=== PATIENT | male | born 1960 | race Caucasian/White ===

== ENCOUNTER 2017-04-11 03:37 | Emergency (ER) | payer SELFPAY ==
[2017-04-11] MEDS ORDERED: GABAPENTIN 300 MG CAPSULE PO SCH ×2 (04:30→14:00)
--- NOTE | 2017-04-11 05:10 | ER Document Report ---
ED General - General TRAVEL OUTSIDE OF THE [place] IN LAST 30 DAYS: No <RADHA PIERRE - Last Filed: 04/11/17 05:59> <AUSTIN DARBY - Last Filed: 04/11/17 10:54> <FEDERICO JEREZ - Last Filed: 04/11/17 11:55> - General Chief Complaint: Psych Problem Stated Complaint: SUICIDAL IDEATION/ETOH Time Seen by Provider: 04/11/17 04:15 Notes: Patient is 57-year-old male who presents with complaint of medical abuse and suicidal ideations. Patient says he has never been seen for this in the past. He says he did recent go through divorce. He says he drinks every day. He does have some withdrawal symptoms of does not drink. He says recently he has been thinking about suicide. He did call me once we brought to the hospital to get help with his alcohol abuse and suicidal thoughts. He does not currently have a plan. He's never tried to hurt himself in the past. (RADHA PIERRE) Past Medical History - Social History Smoking Status: Never Smoker Chew tobacco use (# tins/day): Yes Frequency of alcohol use: Heavy Drug Abuse: None Family History: Reviewed & Not Pertinent Patient has suicidal ideation: Yes Patient has homicidal ideation: No Renal/ Medical History: Denies: Hx Peritoneal Dialysis Surgical Hx: Negative <RADHA PIERRE - Last Filed: 04/11/17 05:59> Review of Systems <RADHA PIERRE - Last Filed: 04/11/17 05:59> <AUSTIN DARBY - Last Filed: 04/11/17 10:54> <FEDERICO JEREZ - Last Filed: 04/11/17 11:55> - Review of Systems Notes: My Normal Review Basic REVIEW OF SYSTEMS: CONSTITUTIONAL : Denies fever, chills, or sweats. Denies recent illness. EENT: Denies eye, ear, throat, or mouth pain or symptoms. Denies nasal or sinus congestion. CARDIOVASCULAR: Denies chest pain. RESPIRATORY: Denies cough, cold, or chest congestion. Denies shortness of breath, difficulty breathing, or wheezing. GASTROINTESTINAL: Denies abdominal pain. Denies nausea, vomiting, or diarrhea. Denies constipation. Last BM: MUSCULOSKELETAL: Denies neck or back pain or joint pain or swelling. SKIN: Denies rash or skin lesions. HEMATOLOGIC : Denies easy bruising or bleeding. LYMPHATIC: Denies swollen, enlarged glands. NEUROLOGICAL: Denies altered mental status or loss of consciousness. Denies headache. Denies weakness or paralysis or loss of use of either side. Denies problems with gait or speech. Denies sensory or motor loss. PSYCHIATRIC: Depression. Suicidal thoughts. ALL OTHER SYSTEMS REVIEWED AND NEGATIVE. (RADHA PIERRE) Physical Exam <RADHA PIERRE - Last Filed: 04/11/17 05:59> <AUSTIN DARBY - Last Filed: 04/11/17 10:54> <FEDERICO JEREZ - Last Filed: 04/11/17 11:55> - Vital signs Vitals: Temp Pulse Resp BP Pulse Ox 97.9 F 87 16 163/90 H 97 04/11/17 04:00 04/11/17 04:00 04/11/17 04:00 04/11/17 04:00 04/11/17 04:00 - Notes Notes: General Appearance: Well nourished, alert, cooperative, no acute distress, no obvious discomfort. Well-appearing. Vitals: reviewed, See vital signs table. Head: no swelling or tenderness to the head Eyes: PERRL, EOMI, Conjuctiva clear Mouth: No decreasd moisture Lungs: No wheezing, No rales, No rhonci, No accessory muscle use, good air exchange bilaterally. Heart: Normal rate, Regular rythm, No murmur, no rub Abdomen: Normal BS, soft, No rigidity, No abdominal tenderness, No guarding, no rebound, no abdominal masses, no organomegaly Extremities: strength 5/5 in all extremities, good pulses in all extremities, no swelling or tenderness in the extremities, no edema. Skin: warm, dry, appropriate color, no rash Neuro: speech clear, oriented x 3, normal affect, responds appropriately to questions. (RADHA PIERRE) Course - Laboratory Result Diagrams: 04/11/17 05:23 04/11/17 05:23 <RADHA PIERRE - Last Filed: 04/11/17 05:59> - Laboratory Result Diagrams: 04/11/17 05:23 04/11/17 05:23 <AUSTIN DARBY - Last Filed: 04/11/17 10:54> - Laboratory Result Diagrams: 04/11/17 05:23 04/11/17 05:23 <FEDERICO JEREZ - Last Filed: 04/11/17 11:55> - Vital Signs Vital signs: Temp Pulse Resp BP Pulse Ox 97.9 F 87 16 163/90 H 97 04/11/17 04:00 04/11/17 04:00 04/11/17 04:00 04/11/17 04:00 04/11/17 04:00 - Laboratory Laboratory results interpreted by me: 04/11/17 04/11/17 04/11/17 05:23 05:23 05:23 WBC 11.2 H Seg Neutrophils % 81.6 H Lymphocytes % 11.2 L Absolute Neutrophils 9.2 H Urine Blood SMALL H Salicylates < 1.0 L Acetaminophen < 10 L - EKG Interpretation by Me Additional EKG results interpreted by me: 04/11/17 05:19 EKG is reviewed and interpreted by me. EKG shows normal sinus rhythm with rate of [address] segment elevation or depression. No ischemic T wave inversions. IN interval, QRS duration QTC intervals are within normal range. No old EKG available for comparison. (RADHA PIERRE) - Transfer of Care Notes: 04/11/17 06:00 Patient slept reevaluation is unremarkable other than a cyst in the bed elevation of his alcohol level. Patient is medically stable for psychiatric evaluation and placement. I have ordered gabapentin 3 times a day to help prevent going into any alcohol withdrawal. If he is discharged after seeing psychiatry may need a prescription for tapering dose gabapentin to help prevent withdrawal symptoms. Patient currently is voluntary. His complaint of some suicidal ideations but denies a plan. He is not on IVC paperwork. He also requests help with his alcohol abuse. Patient is medically stable for psychiatric evaluation. Dictation of this chart was performed using voice recognition software; therefore, there may be some unintended grammatical errors. (RADHA PIERRE) Discharge <RADHA PIERRE - Last Filed: 04/11/17 05:59> <AUSTIN DARBY - Last Filed: 04/11/17 10:54> <FEDERICO JEREZ - Last Filed: 04/11/17 11:55> - Discharge Clinical Impression: Alcohol abuse Depression Qualifiers: Depression Type: unspecified Qualified Code(s): F32.9 - Major depressive disorder, single episode, unspecified Condition: Stable Disposition: HOME, SELF-CARE Additional Instructions: ACUTE ALCOHOL INTOXICATION and ALCOHOL ABUSE: Your evaluation revealed very high levels of alcohol. You can from drinking a large amount of alcohol rapidly! Further, there's the risk of falls , traffic accidents, and fights. A high portion (about 50 percent) of the serious injuries seen in hospital emergency rooms are caused by alcohol. Alcohol overdosage is usually due to an underlying emotional or psychiatric problem. You may benefit from counselling. If "binge" drinking is an ongoing problem for you, or if you drink ANY AMOUNT of alcohol EVERY day, you most likely have a tendency to alcoholism. You should avoid alcohol totally. We can refer you for treatment. Persons with alcohol problems are often also prone to other addictions -- you should discuss any use of medications or drugs with the doctor. You should be watched at home for the next several hours by someone who has not been drinking. Get extra fluids for the next 24 hours. Call the doctor if there is repeated vomiting, increasing headache, decreasing level of alertness, or any other worsening. DEPRESSION: Your evaluation reveals that you have mental depression. While symptoms may be vague, they often include disturbance of sleep, fatigue, loss of appetite , and general loss of interest in life. While depression may be a side effect of drugs, or a reaction to a major change in your life, many cases have no known cause. If depression is acute, and related to a major loss in your life, you can expect it to clear completely with time. If you have been depressed a long time , are prone to repeated bouts of depression or low mood, or have been thinking of suicide, get help. Depression can be treated with anti-depressant medication and counselling. Long-term depression will often take a few weeks to clear, even with appropriate medication. Follow-up care is important. SUICIDAL IDEATION: Suicidal ideation is a common medical term for thoughts about suicide, which may be as detailed as a formulated plan, without the suicidal act itself. Although most people who undergo suicidal ideation do not commit suicide, some go on to make suicide attempts. The range of suicidal ideation varies greatly from fleeting to detailed planning, role playing, and unsuccessful attempts. While thoughts about suicide are common, most people do not carry out serious actions to commit suicide. Based upon your evaluation and discussion with you, we do not believe you are currently at risk to act upon your thoughts of suicide. You have agreed to return to the Emergency Department, at any time , if you feel inclined to act upon your suicidal thoughts. FOLLOW-UP CARE: You have been referred to [facility] for an assessment and treatment for alcohol abuse and depression. Please contact them within 3-5 days. If you experience worsening or a significant change in your symptoms, notify the physician immediately or return to the Emergency Department at any time for re- evaluation. Referrals: [facility] [Outside] - Follow up in 3-5 days Provider Note <RADHA PIERRE - Last Filed: 04/11/17 05:59> <FEDERICO JEREZ - Last Filed: 04/11/17 11:55> Provider Note: Patient is not suicidal or homicidal, states that when he starts drinking things were a little bit overwhelming but he was not thinking about killing himself last night. States he was afraid he would lose his balance and fall balcony. States he was also afraid that his son might hurt him. No longer feels like he is in danger at home. Discussed with patient that she should monitor how much he is drinking and see if when he is drinking he always begins to feel overwhelmed. Patient does not wish for help at this time with quitting drinking. States that he does not drink daily. Also states that when he drinks he does not become suicidal he just feels somewhat overwhelmed. Patient does admit that he is somewhat depressed over his divorce, is willing to accept referral to outpatient resources for depression. Not a danger to himself or others, will be discharged home. (FEDERICO JEREZ)
[2017-04-11 05:41] LABS: ABSOLUTE BASOPHILS # (AUTO) 0.1 10^3/uL (0.0-0.2); ABSOLUTE LYMPHOCYTES (AUTO) 1.3 10^3/uL (0.5-4.7); ABSOLUTE MONOCYTES (AUTO) 0.7 10^3/uL (0.1-1.4); ABSOLUTE NEUT (AUTO) 9.2 10^3/uL (1.7-8.2); BASOPHILS % (AUTO) 0.5 % (0-2); EOSINOPHILS % (AUTO) 0.4 % (0-6); HEMATOCRIT 47.6 % (37.9-51.0); HEMOGLOBIN 16.4 g/dL (13.5-17.0); HGB HCT DIFFERENCE 1.6; LYMPHOCYTES % (AUTO) 11.2 % (13-45); MEAN CORPUSCULAR HEMOGLOBIN 31.5 pg (27.0-33.4); MEAN CORPUSCULAR HGB CONC 34.5 g/dL (32.0-36.0); MEAN CORPUSCULAR VOLUME 91 fl (80-97); MONOCYTES % (AUTO) 6.3 % (3-13); RED BLOOD COUNT 5.22 10^6/uL (4.35-5.55); RED CELL DISTRIBUTION WIDTH 13.4 % (11.5-14.0); SEGMENTED NEUTROPHILS % (AUTO) 81.6 % (42-78); WHITE BLOOD COUNT 11.2 10^3/uL (4.0-10.5)
[2017-04-11 05:45] LABS: APPEARANCE,URINE CLEAR; BILIRUBIN,URINE NEGATIVE (NEGATIVE); GLUCOSE, URINE NEGATIVE (NEGATIVE); KETONES,URINE NEGATIVE (NEGATIVE); LEUKOCYTE ESTERASE,URINE NEGATIVE (NEGATIVE); NITRITE,URINE NEGATIVE (NEGATIVE); PROTEIN,URINE NEGATIVE (NEGATIVE); URINE SPECIFIC GRAVITY 1.004; UROBILINOGEN,URINE NEGATIVE mg/dL (<2.0)
[2017-04-11 05:57] LABS: ALANINE AMINOTRANSFERASE 25 U/L (21-72); ALBUMIN 4.5 g/dL (3.5-5.0); ALCOHOL 171 mg/dL (NONE DETECTED); ALKALINE PHOSPHATASE 79 U/L (38-126); ANION GAP 15 (5-19); ASPARTATE AMINO TRANSFERASE 31 U/L (17-59); BILIRUBIN,DIRECT 0.4 mg/dL (0.0-0.4); BILIRUBIN,TOTAL 0.8 mg/dL (0.2-1.3); BLOOD UREA NITROGEN 9 mg/dL (7-20); CALCIUM 9.4 mg/dL (8.4-10.2); CARBON DIOXIDE 25 mmol/L (22-30); CHLORIDE 102 mmol/L (98-107); CREATININE RESULT 0.81 mg/dL (0.52-1.25); GLUCOSE 97 mg/dL (75-110); SODIUM 141.7 mmol/L (137-145); TOTAL PROTEIN 7.8 g/dL (6.3-8.2)
[2017-04-11 05:59] LABS: URINE BARBITURATES SCREEN NEGATIVE; URINE METHADONE SCREEN NEGATIVE; URINE OPIATES LOW NEGATIVE; URINE PHENCYCLIDINE SCREEN NEGATIVE
[2017-04-11] MEDS ORDERED: GABAPENTIN 300 MG CAPSULE PO ONE (07:00)
--- NOTE | 2017-04-11 10:54 | PSYCHOLOGICAL NOTE ---
Psych Note - Psych Note Psych Note: Patient is 57-year-old male who presents with complaint of alcohol abuse and suicidal ideations. Patient says he has never been seen for this in the past. He says he did recent go through divorce. He says he drinks every day. He does have some withdrawal symptoms of does not drink. He says recently he has been thinking about suicide. He did call me once we brought to the hospital to get help with his alcohol abuse and suicidal thoughts. He does not currently have a plan. He's never tried to hurt himself in the past. Upon entering patient's room patient sat up and was asked how he was doing he said "pretty good." Patient states that he had gone through a divorce approximately a year ago however is still processing his feelings on this; "everybody gives with it emotionally different." Patient continued disclosed that he was thinking about it and started drinking last night. Patient states he called EMS because he "got spooked" and was concerned that he might "follow over the balcony." Patient states he "drank a little too much" but denies alcohol abuse. Patient is alert and orientated to person, place, time and circumstance. Mood is euthymic with congruent affect. Patient denies suicidal and homicidal ideation. Clinician notes patient identified suicidal ideation upon admittance to [facility] with no plan intent or means. Patient denies auditory and visual hallucinations; patient is not demonstrating behaviour what would be congruent to responding to internal stimuli. No delusions are noted. Thought process is organized and linear. Conversational speech was within normal rate tone and prosody. Eye contact was well maintained. Intellectual abilities appear to be within average range. Attention and concentration is good. Insight, judgment, and impulse control is poor. 291.9 (F10.99) Unspecified alcohol related disorder Impression\\plan: Patient is psychiatrically cleared for discharge, patient does not meet IVC criteria per [place] GS 122C. Patient denies suicidal and homicidal ideation. Clinician notes patient did endorse suicidal ideation while under the influence to staff upon being admitted to [facility]; no plan intent or means. Patient denies alcohol abuse to clinician however disclosed drinking daily to staff upon admission to [facility]. Clinician will provide both outpatient and inpatient resources for substance abuse treatment. Patient is recommended to receive assessment/treatment for alcohol abuse into receives therapeutic services to assist processing his emotions regarding his divorce. Dr. Asher was consulted on the care and management of this patient; attending physician is in agreement with recommendations and disposition.
[2017-04-11 12:42] VITALS: BP 165/81
--- NOTE | 2017-04-11 13:52 | EKG REPORT ---
SEVERITY:- NORMAL ECG - SINUS RHYTHM : Confirmed by: Cristina Pradhan 11-Apr-2017 13:51:53
== END 2017-04-11 13:00 | disposition home or self-care (01) ==
LOC: ER 03:37
DX: F10.10 Alcohol abuse, uncomplicated (principal); F32.9 Major depressive disorder, single episode, unspecified
CPT/HCPCS: 36415; 80053; 80307; 81001; 85025; 93005; 93010; 99285